=== PATIENT | male | born 1995 | race African-American/Black ===

== ENCOUNTER 2017-02-20 16:14 | Emergency (ER) | payer BC ==
[2017-02-20 16:23] VITALS: BP 154/94; PULSE 80; TEMP 97.2; BMI 25.1
[2017-02-20] MEDS ORDERED: ALBUTEROL SO4 0.083% IH SOL 2.5 MG/3 ML VIAL.NEB. NEB ONE (16:29)
[2017-02-20] MEDS ORDERED: guaiFENesin/D-METHORPHAN HB 10 ML UNIT-DOSE CUPS PO ONE (16:29)
[2017-02-20] MEDS ORDERED: guaiFENesin/D-METHORPHAN HB 10 ML UNIT-DOSE CUPS ONE (16:29)
--- NOTE | 2017-02-20 16:29 | PDOC ---
History of Present Illness - History of Present Illness Initial Comments: 02/20/17 16:45 The patient is a 21 year old male, with a significant past medical history of asthma, who presents to the emergency department with his father for chest tightness since last night. Patient states that he was out in the cold last night, which triggered his asthma. He states that he is not experiencing much phlegm, his main complaint is chest tightness and wheezing. His father states that his asthma acts up from time to time with exposure to dust and the changing of seasons. Patient states he hasn't had an asthma attack in a while. He uses an inhaler at home but hasn't used a nebulizer since he was younger. He denies any recent fevers, chills, headache or dizziness. He denies any recent cough, nausea, vomit, diarrhea or constipation. He denies any recent dysuria, frequency, urgency or hematuria. Allergies: NKA Past surgical history: None reported. Social History: Nonsmoker. Denies EtOH use and recreational drug use. 02/20/17 16:47 <Emmy Dickens - Last Filed: 02/20/17 17:02> <Santosh Oliver - Last Filed: 02/20/17 17:08> - General Chief Complaint: Asthma Stated Complaint: ASTHMA Time Seen by Provider: 02/20/17 16:21 Past History <Emmy Dickens - Last Filed: 02/20/17 17:02> - Past Medical History Asthma: Yes COPD: No - Suicide/Smoking/Psychosocial Hx Smoking History: Never smoked Information on smoking cessation initiated: No Hx Alcohol Use: No Drug/Substance Use Hx: No Substance Use Type: None <Santosh Oliver - Last Filed: 02/20/17 17:08> - Past Medical History Allergies/Adverse Reactions: Allergies Allergy/AdvReac Type Severity Reaction Status Date / Time No Known Allergies Allergy Verified 02/20/17 16:15 Home Medications: Ambulatory Orders Albuterol Sulfate Inhaler - [Ventolin HFA Inhaler -] 1 - 2 inh PO Q4H PRN #1 inhaler 02/20/17 Salmeterol/Fluticasone [Advair 250Mcg/50Mcg] 1 inh PO BID #1 diskus 02/20/17 Review of Systems - Review of Systems Comments:: 02/20/17 16:46 CONSTITUTIONAL: Absent: fever, no chills, no fatigue EYES: Absent: visual changes ENT: Absent: ear pain, no sore throat CARDIOVASCULAR: Present: chest tightness Absent: chest pain, no palpitations RESPIRATORY: Present: SOB Absent: cough GI: Absent: abdominal pain, no nausea, no vomiting, no constipation, no diarrhea GENITOURINARY: Absent: dysuria, no frequency, no hematuria MUSCULOSKELETAL: Absent: back pain, no arthralgia, no myalgia <Emmy Dickens - Last Filed: 02/20/17 17:02> *Physical Exam - Vital Signs Last Vital Signs Temp Pulse Resp BP Pulse Ox 97.2 F L 80 16 154/94 100 02/20/17 16:15 02/20/17 16:15 02/20/17 16:15 02/20/17 16:15 02/20/17 16:15 <Emmy Dickens - Last Filed: 02/20/17 17:02> - Vital Signs Last Vital Signs Temp Pulse Resp BP Pulse Ox 97.2 F L 80 16 154/94 100 02/20/17 16:15 02/20/17 16:15 02/20/17 16:15 02/20/17 16:15 02/20/17 16:15 <Santosh Oliver - Last Filed: 02/20/17 17:08> ED Treatment Course - Medications Given in the ED: ED Medications Discontinued Medications Generic Name Dose Route Start Last Admin Trade Name Freq PRN Reason Stop Dose Admin Albuterol Sulfate 1 amp 02/20/17 16:29 02/20/17 16:41 Ventolin 0.083% Nebulizer Soln - NEB 02/20/17 16:30 1 amp ONCE ONE Administration Guaifenesin 10 ml 02/20/17 16:29 02/20/17 16:30 Robitussin Dm - PO 02/20/17 16:30 10 ml ONCE ONE Administration <Emmy Dickens - Last Filed: 02/20/17 17:02> Medical Decision Making - Medical Decision Making 02/20/17 17:07 Patient much improved after nebulizer treatment. Wheezing completely resolved. Full breath sounds throughout bilaterally. Respiratory rate 16 and unlabored. O2 saturation 100% Advair discus prescribed, albuterol refilled, avoid the cold air and follow-up with primary physician or lung specialist. Return to ER if wheezing recurs or other respiratory symptoms, including shortness of breath, cough, or fever develop. Fully ambulatory and in no distress respiratory or otherwise upon discharge with his father to follow-up as needed <Santosh Oliver - Last Filed: 02/20/17 17:08> *DC/Admit/Observation/Transfer - Attestations Scribe Attestion: 02/20/17 17:03 Documentation prepared by Emmy Dickens, acting as medical referral coordinator for Santosh Amor MD. <Emmy Dickens - Last Filed: 02/20/17 17:02> - Discharge Dispostion Admit: No <Santosh Oliver - Last Filed: 02/20/17 17:08> Diagnosis at time of Disposition: Viral bronchitis - Discharge Dispostion Disposition: HOME Condition at time of disposition: Improved - Prescriptions Prescriptions: Albuterol Sulfate Inhaler - [Ventolin HFA Inhaler -] 1 - 2 inh PO Q4H PRN #1 inhaler PRN Reason: Wheezing Salmeterol/Fluticasone [Advair 250Mcg/50Mcg] 1 inh PO BID #1 diskus - Referrals Referrals: Brendan Martinez MD [Staff Physician] - - Patient Instructions Printed Discharge Instructions: Asthma -- Adult, DI for Acute Bronchitis Additional Instructions: Return to ER if the wheezing is worse, or if you develop chest pain, shortness of breath, fever, or productive cough. Otherwise follow-up with your primary physician in 2-3 days. Use inhalers as directed.
== END 2017-02-20 17:46 | disposition home or self-care (01) ==
LOC: FER 16:14
PROC: 3E0F7GC Introduction of Other Therapeutic Substance into Respiratory Tract, Via Natural or Artificial Opening (ICD-10-PCS; principal; 2017-02-20)
DX: J20.8 Acute bronchitis due to other specified organisms (principal)
CPT/HCPCS: 99281-25